=== PATIENT | female | born 1975 | race Caucasian/White ===

== ENCOUNTER 2017-03-29 08:21 | Emergency (ER) | payer SELFPAY ==
[~2017-03-29] VITALS: Ht 158.8 cm; Wt 81.6 kg
[2017-03-29 08:33] VITALS: BP 112/69
[2017-03-29 09:21] LABS: BASO # 0.1 x10^3/uL (0.0-0.2); BASO % 1 % (0-3); EOS % 2 % (0-3); HEMATOCRIT 48.9 % (36.0-47.0); HEMOGLOBIN 16.9 g/dL (12.0-15.5); LYMPH # 2.5 x10^3/uL (1.0-4.8); LYMPH % 24 % (24-48); MEAN CORPUSCULAR HEMOGLOBIN 31 pg (25-35); MEAN CORPUSCULAR HGB CONC 35 g/dL (31-37); MEAN CORPUSCULAR VOLUME 89 fL (79-100); MONO % 8 % (0-9); NEUT % 65 % (31-73); PLATELET COUNT 240 x10^3/uL (140-400); RED BLOOD COUNT 5.51 x10^6/uL (3.50-5.40); RED CELL DISTRIBUTION WIDTH 13.6 % (11.5-14.5); WHITE BLOOD COUNT 10.2 x10^3/uL (4.0-11.0)
[2017-03-29] MEDS ORDERED: IV NORMAL SALINE 1000ML BAG 1,000 ML IV ONE (09:30)
[2017-03-29 09:33] LABS: BILIRUBIN,URINE NEGATIVE (NEG); GLUCOSE,URINE NEGATIVE (NEG); NITRITE,URINE NEGATIVE (NEG); PROTEIN,URINE NEGATIVE (NEG-TRACE); UROBILINOGEN,URINE 0.2 mg/dL (0.2 mg/dL)
[2017-03-29 09:34] LABS: CALCIUM 9.1 mg/dL (8.5-10.1); CREATININE 0.8 mg/dL (0.6-1.0); GFR 79.4; POTASSIUM 4.1 mmol/L (3.5-5.1)
[2017-03-29 09:40] LABS: ALBUMIN 3.6 g/dL (3.4-5.0); ALBUMIN/GLOBULIN RATIO 0.9 (1.0-1.7); TOTAL BILIRUBIN 0.4 mg/dL (0.2-1.0); TOTAL PROTEIN 7.6 g/dL (6.4-8.2)
[2017-03-29 09:47] LABS: BACTERIA,URINE 0 /HPF (0-FEW); RBC,URINE 0 /HPF (0-2); SQUAMOUS EPITHELIAL CELL,UR FEW /LPF; WBC,URINE 0 /HPF (0-4)
[2017-03-29 09:48] LABS: BARBITURATES NEG (NEG); BENZODIAZEPINES NEG (NEG); CANNABINOIDS NEG (NEG); COCAINE NEG (NEG); METHADONE NEG (NEG); OPIATES NEG (NEG); PHENCYCLIDINE NEG (NEG)
--- NOTE | 2017-03-29 10:05 | RAD ---
CT head without contrast History: Slow speech, dizziness. Comparison: None. Procedure: Axial images are obtained of the head from the skull base through the vertex without IV contrast. Findings: The ventricles are minimally prominent. The sulci are normal for the patient's age. No mass-effect, intracranial mass, midline shift, hemorrhage or obvious acute infarction is identified. Basilar cisterns are patent. Bone windows demonstrate no significant calvarial abnormality. The visualized paranasal sinuses appear clear. Impression: 1. Minimal prominence of the lateral and third ventricle. Otherwise unremarkable exam. PQRS Compliance Statement: One or more of the following individualized dose reduction techniques were utilized for this examination: 1. Automated exposure control 2. Adjustment of the mA and/or kV according to patient size 3. Use of iterative reconstruction technique
--- NOTE | 2017-03-29 10:15 | PHYS DOC ---
Past Medical History Past Medical History: No Pertinent History Past Surgical History: Alcohol Use: None Drug Use: None Adult General Chief Complaint Chief Complaint: DIZZY/LIGHT HEADED HPI HPI Patient is a 41 year old female who presents with complaint of "not feeling right." Patient states that starting this morning at approximately 0730, the patient states that she became slightly dizzy and started feeling like things were and "slow motion." Patient also states that she has mild associated headache. Patient states that she has had a similar episode approximately 6-7 months ago which resolved spontaneously. The patient states that currently she feels like she is speaking slower than usual. Patient denies any other symptoms associated. Patient states that she does not have any history of stroke or heart problems. Patient states that she has not experienced any unilateral weakness, difficulty with swallowing, loss of vision, or significant loss of balance with her symptoms. Patient has not taken any medications. Patient states that she did not see a physician or have any medical evaluation with her previous episode. Patient states that she has been under a significant amount of stress. Patient states that she was thinking of her father who is currently on hospice care at time of symptom onset. Patient states that she has been very worried not only for her father but also effects of his potential passing on other family members. She states that she expect her father to pass away within the next week. Review of Systems Review of Systems Constitutional: Denies fever or chills [] Eyes: Denies change in visual acuity, redness, or eye pain [] HENT: Denies nasal congestion or sore throat [] Respiratory: Denies cough or shortness of breath [] Cardiovascular: Denies chest pain or edema [] GI: Denies abdominal pain, nausea, vomiting, bloody stools or diarrhea [] : Denies dysuria or hematuria [] Musculoskeletal: Denies back pain or joint pain [] Integument: Denies rash or skin lesions [] Neurologic: Headache, slowed speech, denies focal weakness or sensory changes [] Current Medications Current Medications Current Medications Medications (Trade) Dose Ordered Sig/Antony Start Time Stop Time Status Last Admin Dose Admin Aspirin (Joi Aspirin) 325 mg 1X ONCE 03/29/17 10:45 03/29/17 10:46 DC 03/29/17 10:58 325 MG Sodium Chloride 1,000 ml @ 1,000 mls/hr 1X ONCE 03/29/17 09:30 5/14/17 10:29 DC 03/29/17 10:03 1,000 MLS/HR Allergies Allergies Allergies Coded Allergies Type Severity Reaction Last Updated Verified No Known Drug Allergies 03/29/17 No Physical Exam Physical Exam Constitutional: Alert, afebrile, tearful during interview. [] HENT: Normocephalic, atraumatic, bilateral external ears normal, oropharynx moist, no oral exudates, nose normal. [] Eyes: PERRLA, EOMI, conjunctiva normal, no discharge. [] Neck: Normal range of motion, no tenderness, supple, no stridor. [] Cardiovascular:Heart rate regular rhythm, no murmur [] Lungs & Thorax: Bilateral breath sounds clear to auscultation [] Abdomen: Bowel sounds normal, soft, no tenderness, no masses, no pulsatile masses. [] Skin: Warm, dry, no erythema, no rash. [] Back: No tenderness, no CVA tenderness. [] Extremities: No tenderness, no cyanosis, no clubbing, ROM intact, no edema. [] Neurologic: Alert and oriented X 3, normal motor function, normal sensory function, no focal deficits noted. [] Current Patient Data Vital Signs Vital Signs Date Time Temp Pulse Resp B/P (MAP) Pulse Ox O2 Delivery O2 Flow Rate FiO2 03/29/17 08:33 97.7 86 18 112/69 (83) 98 Room Air 97.7 Lab Values Laboratory Tests Test 03/29/17 08:55 03/29/17 09:20 White Blood Count 10.2 x10^3/uL (4.0-11.0) Red Blood Count 5.51 x10^6/uL (3.50-5.40) H Hemoglobin 16.9 g/dL (12.0-15.5) H Hematocrit 48.9 % (36.0-47.0) H Mean Corpuscular Volume 89 fL (79-100) Mean Corpuscular Hemoglobin 31 pg (25-35) Mean Corpuscular Hemoglobin Concent 35 g/dL (31-37) Red Cell Distribution Width 13.6 % (11.5-14.5) Platelet Count 240 x10^3/uL (140-400) Neutrophils (%) (Auto) 65 % (31-73) Lymphocytes (%) (Auto) 24 % (24-48) Monocytes (%) (Auto) 8 % (0-9) Eosinophils (%) (Auto) 2 % (0-3) Basophils (%) (Auto) 1 % (0-3) Neutrophils # (Auto) 6.6 x10^3uL (1.8-7.7) Lymphocytes # (Auto) 2.5 x10^3/uL (1.0-4.8) Monocytes # (Auto) 0.8 x10^3/uL (0.0-1.1) Eosinophils # (Auto) 0.2 x10^3/uL (0.0-0.7) Basophils # (Auto) 0.1 x10^3/uL (0.0-0.2) Sodium Level 139 mmol/L (136-145) Potassium Level 4.1 mmol/L (3.5-5.1) Chloride Level 103 mmol/L (98-107) Carbon Dioxide Level 25 mmol/L (21-32) Anion Gap 11 (6-14) Blood Urea Nitrogen 13 mg/dL (7-20) Creatinine 0.8 mg/dL (0.6-1.0) Estimated GFR (Cockcroft-Gault) 79.4 BUN/Creatinine Ratio 16 (6-20) Glucose Level 91 mg/dL (70-99) Calcium Level 9.1 mg/dL (8.5-10.1) Magnesium Level 2.0 mg/dL (1.8-2.4) Total Bilirubin 0.4 mg/dL (0.2-1.0) Aspartate Amino Transferase (AST) 16 U/L (15-37) Alanine Aminotransferase (ALT) 22 U/L (14-59) Alkaline Phosphatase 85 U/L (46-116) Total Protein 7.6 g/dL (6.4-8.2) Albumin 3.6 g/dL (3.4-5.0) Albumin/Globulin Ratio 0.9 (1.0-1.7) L Urine Collection Type Unknown Urine Color Yellow Urine Clarity Clear Urine pH 5.0 Urine Specific [place] 1.010 Urine Protein Negative mg/dL (NEG-TRACE) Urine Glucose (UA) Negative mg/dL (NEG) Urine Ketones (Stick) Negative mg/dL (NEG) Urine Blood Negative (NEG) Urine Nitrite Negative (NEG) Urine Bilirubin Negative (NEG) Urine Urobilinogen Dipstick 0.2 mg/dL (0.2 mg/dL) Urine Leukocyte Esterase Negative (NEG) Urine RBC 0 /HPF (0-2) Urine WBC 0 /HPF (0-4) Urine Squamous Epithelial Cells Few /LPF Urine Bacteria 0 /HPF (0-FEW) Urine Opiates Screen Neg (NEG) Urine Methadone Screen Neg (NEG) Urine Barbiturates Neg (NEG) Urine Phencyclidine Screen Neg (NEG) Urine Amphetamine/Methamphetamine Neg (NEG) Urine Benzodiazepines Screen Neg (NEG) Urine Cocaine Screen Neg (NEG) Urine Cannabinoids Screen Neg (NEG) Urine Ethyl Alcohol Neg (NEG) Laboratory Tests 03/29/17 08:55 Laboratory Tests 03/29/17 08:55 EKG EKG Interpreted by me: Heart rate 69, sinus rhythm, normal intervals, normal axis, no acute ST/T-wave abnormalities present [] Radiology/Procedures Radiology/Procedures [facility] [address] [place] [address] IMAGING REPORT Signed PATIENT: RAUL FERNANDEZ ACCOUNT: [id number] : 1975 LOCATION: ER AGE: 41 SEX: F EXAM STATUS: REG ER ORD. PHYSICIAN: PAULETTE ELISE MD REASON: slow speech, dizziness PROCEDURE: CT HEAD WO CONTRAST CT head without contrast History: Slow speech, dizziness. Comparison: None. Procedure: Axial images are obtained of the head from the skull base through the vertex without IV contrast. Findings: The ventricles are minimally prominent. The sulci are normal for the patient's age. No mass-effect, intracranial mass, midline shift, hemorrhage or obvious acute infarction is identified. Basilar cisterns are patent. Bone windows demonstrate no significant calvarial abnormality. The visualized paranasal sinuses appear clear. Impression: 1. Minimal prominence of the lateral and third ventricle. Otherwise unremarkable exam. PQRS Compliance Statement: One or more of the following individualized dose reduction techniques were utilized for this examination: 1. Automated exposure control 2. Adjustment of the mA and/or kV according to patient size 3. Use of iterative reconstruction technique DICTATED and SIGNED BY: RADHA MCGUIRE MD DATE: 03/29/17 0958 CC: PAULETTE ELISE MD; NO PCP ~ [] Course & Med Decision Making Course & Med Decision Making Pertinent Labs and Imaging studies reviewed. (See chart for details) Patient's lab and imaging do not reveal any evidence of an acute process. I suspect that the patient's symptoms are likely the result of an acute stress reaction with conversive symptoms. The patient was able to tolerated meal tray in the emergency department without difficulty and her symptoms have improved significantly upon arrival. Today lesser extent the patient may display a typical symptoms of possible TIA though this is thought to be much less likely. After speaking with the patient, we will start her on 81 mg aspirin daily and I recommended follow-up with the patient's primary doctor in 3-4 days for reevaluation. Advised return emergency department for any worsening symptoms. Patient voiced understanding and in agreement with treatment plan. Dragon Disclaimer Dragon Disclaimer This electronic medical record was generated, in whole or in part, using a voice recognition dictation system. Departure Departure Impression: Primary Impression: Headache Additional Impressions: Dehydration Acute stress reaction Disposition: 01 HOME, SELF-CARE Condition: IMPROVED Referrals: NO PCP (PCP) MADI MONTOYA MD Patient Instructions: Dehydration, Adult, General Headache Without Cause, Stress Additional Instructions: Follow-up with your primary doctor in 3-4 days. Continue on 81 mg aspirin daily until you have been reevaluated by her primary physician. Return to the emergency department for any worsening symptoms. Scripts Aspirin (ASPIRIN) 81 Mg Tab.chew 1 TAB PO DAILY, #30 TAB 0 Refills Prov: PAULETTE ELISE MD 03/29/17 Problem Qualifiers Primary Impression: Headache Headache type: unspecified Headache chronicity pattern: episodic headache Intractability: not intractable Qualified Codes: R51 - Headache PAULETTE ELISE MD March 29, 2017 10:15
[2017-03-29] MEDS ORDERED: ASPI81TA2 PO (10:43)
[2017-03-29] MEDS ORDERED: ASPIRIN 325 MG TABLET PO ONE (10:45)
--- NOTE | 2017-03-29 12:56 | EKG ---
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
== END 2017-03-29 11:05 | disposition home or self-care (01) ==
LOC: ER 09:45
DX: R51 Headache (principal); E86.0 Dehydration; F43.0 Acute stress reaction; R42 Dizziness and giddiness
CPT/HCPCS: 36415; 70450; 80053; 80305; 80320; 81001; 82947; 83735; 85027; 93005; 96360; 99285; J7030; G0481

== ENCOUNTER 2017-10-14 06:15 | Emergency (ER) | payer SELFPAY ==
[~2017-10-14 06:15] MED LIST: ASPI-630 PO
--- NOTE | 2017-10-14 06:24 | PHYS DOC ---
Past Medical History Past Medical History: No Pertinent History Past Surgical History: Alcohol Use: None Drug Use: None Adult General Chief Complaint Chief Complaint: BACK PAIN OR INJURY HPI HPI Patient is a 42 year old female who presents with with side back pain. Yesterday around 10 AM she slipped at work and caught herself and since then she's been in the back pain on the left CVA area. She denies any dysuria, she states she feels little nauseated but it's likely secondary to her ibuprofen she's been taking. She states she's been taking 4 tablets of Advil every 3-4 hours without any relief. She denies any chest pain, shortness of breath or abdominal pain. She states it hurts the left paraspinal area. Review of Systems Review of Systems Constitutional: Denies fever or chills [] Eyes: Denies change in visual acuity, redness, or eye pain [] HENT: Denies nasal congestion or sore throat [] Respiratory: Denies cough or shortness of breath [] Cardiovascular: No additional information not addressed in HPI [] GI: Denies abdominal pain, nausea, vomiting, bloody stools or diarrhea [] : Denies dysuria or hematuria [] Musculoskeletal: Denies joint pain, positive for left sided paraspinal back pain Integument: Denies rash or skin lesions [] Neurologic: Denies headache, focal weakness or sensory changes [] Endocrine: Denies polyuria or polydipsia [] All other systems were reviewed and found to be within normal limits, except as documented in this note. Allergies Allergies Allergies Coded Allergies Type Severity Reaction Last Updated Verified No Known Drug Allergies 03/29/17 No Physical Exam Physical Exam Constitutional: Well developed, well nourished, no acute distress, non-toxic appearance. [] HENT: Normocephalic, atraumatic, bilateral external ears normal, oropharynx moist, no oral exudates, nose normal. [] Eyes: PERRLA, EOMI, conjunctiva normal, no discharge. [] Neck: Normal range of motion, no tenderness, supple, no stridor. [] Cardiovascular:Heart rate regular rhythm, no murmur [] Lungs & Thorax: Bilateral breath sounds clear to auscultation [] Abdomen: Bowel sounds normal, soft, no tenderness, no masses, no pulsatile masses. [] Skin: Warm, dry, no erythema, no rash. [] Back: No midline tenderness, or palpation over the left CVA area with light palpation, consistent with muscle spasm Extremities: No tenderness, no cyanosis, no clubbing, ROM intact, no edema. [] Neurologic: Alert and oriented X 3, normal motor function, normal sensory function, no focal deficits noted. [] Psychologic: Affect normal, judgement normal, mood normal. [] Current Patient Data Vital Signs Vital Signs Date Time Temp Pulse Resp B/P (MAP) Pulse Ox O2 Delivery O2 Flow Rate FiO2 10/14/17 06:28 97.4 109 26 98 Room Air 97.4 Lab Values Laboratory Tests Test 10/14/17 06:28 10/14/17 06:30 10/14/17 06:48 POC Urine HCG, Qualitative Hcg negative (Negative) Urine Collection Type Unknown Urine Color Calli Urine Clarity Hazy Urine pH 5.5 Urine Specific [place] >=1.030 Urine Protein 30 mg/dL (NEG-TRACE) Urine Glucose (UA) Negative mg/dL (NEG) Urine Ketones (Stick) Trace mg/dL (NEG) Urine Blood Large (NEG) Urine Nitrite Negative (NEG) Urine Bilirubin Small (NEG) Urine Urobilinogen Dipstick 1.0 mg/dL (0.2 mg/dL) Urine Leukocyte Esterase Small (NEG) Urine RBC >40 /HPF (0-2) Urine WBC 5-10 /HPF (0-4) Urine Squamous Epithelial Cells Mod /LPF Urine Bacteria Few /HPF (0-FEW) Urine Mucus Slight /LPF POC Hemoglobin 17.0 g/dL (12-15) H POC Hematocrit 50 % (36-40) H POC Sodium 141 mmol/L (135-145) POC Potassium 4.2 mmol/L (3.5-5.0) POC Chloride 105 mmol/L (98-110) POC Total CO2 28 mmol/L (23-32) Anion Gap 13 mmol/L (6-14) POC Blood Urea Nitrogen 15 mg/dL (8-26) POC Creatinine 0.9 mg/dL (0.5-1.4) Glucose Level 82 mg/dL (70-99) POC Ionized Calcium (Vaishali) 1.14 mmol/L (1.13-1.32) Laboratory Tests 10/14/17 06:48 EKG EKG [] Radiology/Procedures Radiology/Procedures [] Impressions: Back pain Course & Med Decision Making Course & Med Decision Making Pertinent Labs and Imaging studies reviewed. (See chart for details) Patient did not want to stay for further evaluation and left AMA. I did write her prescription for Flexeril however she left prior to obtaining her prescription. Her UA was still pending when I wrote a prescription. Dragon Disclaimer Dragon Disclaimer This electronic medical record was generated, in whole or in part, using a voice recognition dictation system. Departure Departure Impression: Primary Impression: Back pain Disposition: AGAINST MEDICAL ADVICE Condition: STABLE Referrals: NO PCP (PCP) Patient Instructions: Muscle Strain Additional Instructions: You were seen after pulling a muscle in her back. I believe this is likely your pain. You have decided to leave before all your tests have returned. You can try Flexeril which is a muscle relaxant, he careful because it can make you sleepy. At first I would take half a tablet and see how you do. You should not drive or work while taking this medicine as it can impair judgment and make you sleepy. You can also take Advil 600 mg every 8 hours for next 3-5 days. Please drink a few extra glasses extra fluid daily while your taking this high dose of Advil. Return back to ER if you have severe pain, uncontrolled nausea vomiting, high fevers, weakness or numbness in your arms or legs or other concerns. Scripts Cyclobenzaprine Hcl (CYCLOBENZAPRINE HCL) 10 Mg Tablet 1 TAB PO TID Y for MUSCLE SPASMS, #30 TAB Prov: ASHOK JENSEN MD 10/14/17 ASHOK JENSEN MD Oct 14, 2017 06:24
[2017-10-14 06:28] VITALS: BP 166/64
[2017-10-14 06:51] LABS: BILIRUBIN,URINE SMALL (NEG); GLUCOSE,URINE NEGATIVE (NEG); NITRITE,URINE NEGATIVE (NEG); PH,URINE 5.5; PROTEIN,URINE 30 mg/dL (NEG-TRACE)
[2017-10-14 06:53] LABS: POTASSIUM ISTAT 4.2 mmol/L (3.5-5.0)
[2017-10-14 07:12] LABS: SQUAMOUS EPITHELIAL CELL,UR MOD /LPF
[2017-10-14 07:13] LABS: BACTERIA,URINE FEW /HPF (0-FEW); RBC,URINE >40 /HPF (0-2)
[2017-10-14] MEDS ORDERED: CYCL10TA2 PO (07:16)
== END 2017-10-14 07:14 | disposition left against medical advice (07) ==
LOC: ER 06:15
DX: M54.89 Other dorsalgia (principal)
CPT/HCPCS: 36415; 80047; 81001; 81025; 85014; 85018; 87086; 99284

== ENCOUNTER 2021-08-04 10:44 | Emergency (ER) | payer SELFPAY ==
[~2021-08-04] VITALS: Ht 157.5 cm; Wt 89.4 kg
[~2021-08-04 10:44] MED LIST changes: +CYCL10TA2 PO
[2021-08-04 11:17] LABS: BASO # 0.1 x10^3/uL (0.0-0.2); BASO % 1 % (0-3); EOS # 0.1 x10^3/uL (0.0-0.7); EOS % 1 % (0-3); HEMATOCRIT 47.6 % (36.0-47.0); HEMOGLOBIN 16.4 g/dL (12.0-15.5); LYMPH # 1.8 x10^3/uL (1.0-4.8); LYMPH % 17 % (24-48); MEAN CORPUSCULAR HEMOGLOBIN 31 pg (25-35); MEAN CORPUSCULAR HGB CONC 35 g/dL (31-37); MEAN CORPUSCULAR VOLUME 91 fL (79-100); MONO # 0.6 x10^3/uL (0.0-1.1); MONO % 5 % (0-9); NEUT # 8.1 x10^3/uL (1.8-7.7); NEUT % 76 % (31-73); PLATELET COUNT 257 x10^3/uL (140-400); RED BLOOD COUNT 5.26 x10^6/uL (3.50-5.40); RED CELL DISTRIBUTION WIDTH 13.8 % (11.5-14.5); WHITE BLOOD COUNT 10.7 x10^3/uL (4.0-11.0)
--- NOTE | 2021-08-04 11:27 | RAD ---
CT scan of the head without contrast 08/04/2021 Clinical History: Facial tingling. Bilateral arm tingling. History of old CVA. Technique: Unenhanced, contiguous, 5 mm axial sections were obtained through the head. One or more of the following individualized dose reduction techniques were utilized for this study: 1. Automated exposure control. 2. Adjustment of the mA and/or kV according to patient size. 3. Use of iterative reconstruction technique. Findings: The ventricles are within normal limits in size and configuration. A small area of encephal omalacia is seen involving the right temporal/parietal lobe. No acute parenchymal abnormality is seen . No extra-axial fluid collection is noted. No skull fracture is seen. Impression: No acute intracranial abnormality is seen. This result was discussed with Dr. Hollingsworth at 1122 hours. FOR INTERNAL CODING PURPOSES RESULT CODE: (C) Electronically signed by: Ambrocio Mcdaniel MD (08/04/2021 11:24 AM) [id number]
--- NOTE | 2021-08-04 11:27 | EKG ---
[facility] [address] [place] [address] Test Date: 2021-08-04 Test Time: 11:00:59 Pat Name: RAUL FERNANDEZ Department: Room: Gender: F Services Clerk: : 1975 Requested By: SENA DUTTA Order Number: [id number] Reading MD: Measurements Intervals [place] Rate: 86 P: 52 FL: 140 QRS: 47 QRSD: 84 T: 39 QT: 358 QTc: 431 Interpretive Statements SINUS RHYTHM QRS(T) CONTOUR ABNORMALITY CONSIDER INFERIOR MYOCARDIAL DAMAGE POSSIBLY ABNORMAL ECG RI6.01 No previous ECG available for comparison
[2021-08-04 11:28] LABS: CALCIUM 8.8 mg/dL (8.5-10.1); CREATININE 0.9 mg/dL (0.6-1.0); POTASSIUM 4.3 mmol/L (3.5-5.1)
[2021-08-04 11:30] LABS: PROTHROMBIN TIME PATIENT 12.2 SEC (11.7-14.0)
--- NOTE | 2021-08-04 11:43 | RAD ---
CTA HEAD AND NECK W/WO CONTRAST History: Facial and upper extremity paresthesias. Old CVA history. Technique: After bolus of intravenous contrast, volumetric CT data acquisition was acquired of the he ad and neck. Multiplanar reconstruction images to include MIP and 3-D reconstruction images are submi tted. Any determination of stenosis is based on NASCET criteria. Comparison: Noncontrast head CT 08/04/2021. Findings: Angiogram neck: Aortic arch: Normal 3 vessel arch. Common carotid arteries: No stenosis, occlusion or dissection. Internal carotid arteries: No stenosis, occlusion or dissection. External carotid arteries: Patent Vertebral arteries: No stenosis, occlusion or dissection. Angiogram head: ICA: No stenosis, occlusion or aneurysm. MCA: No stenosis, occlusion or aneurysm. HENOK: No stenosis, occlusion or aneurysm. 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 Basilar artery: No stenosis, occlusion or aneurysm. Distal vertebral arteries: No stenosis, occlusion or aneurysm. Other: Imaged lung apices are unremarkable. Soft tissues appear normal. No pathologic osseous lesions. Impression: 1. No arterial stenosis or occlusion within the head or neck. Findings discussed with Dr Sanchez at 08/04/2021 11:39 AM. FOR INTERNAL CODING PURPOSES RESULT CODE: (C) Exposure: One or more of the following individualized dose reduction techniques were utilized for thi s examination: 1. Automated exposure control 2. Adjustment of the mA and/or kV according to patient size 3. Use of iterative reconstruction technique. Electronically signed by: Ben Santana MD (08/04/2021 11:41 AM) [id number]
--- NOTE | 2021-08-04 11:44 | RAD ---
XR CHEST 1V History: Code stroke. Comparison: None. Technique: AP radiograph of the chest. Findings: The lungs are adequately and symmetrically inflated. No airspace consolidation, pleural effusion or p neumothorax. The cardiomediastinal silhouette and pulmonary vasculature are within normal limits. No acute osseous abnormality. Soft tissues are unremarkable. Impression: 1. No acute cardiopulmonary process. Electronically signed by: Ben Santana MD (08/04/2021 11:41 AM) [id number]
[2021-08-04] MEDS ORDERED: ASPIRIN CHEWABLE 81 MG TABLET. PO ONE (11:45)
[2021-08-04] MEDS ORDERED: IOHEXOL 300 MG/ML 100ML VIAL. IV ONE (11:45)
--- NOTE | 2021-08-04 11:53 | PHYS DOC ---
Past Medical History Past Medical History: No Pertinent History Additional Past Medical Histor: L SIDE DEFICITS (SENA DUTTA APRN) Past Surgical History: (SENA DUTTA APRN) Smoking Status: Current Every Day Smoker Additional Information: 0.5 PPD Alcohol Use: Rarely Drug Use: None (SENA DUTTA APRN) General Adult EDM: Chief Complaint: NEURO SYMPTOMS/DEFICITS HPI: HPI: Patient is a 45 year old female presents emergency department chief complaint facial tingling and bilateral upper extremity tingling that started approximately 8 hours prior to arrival. Patient reports a history of CVA for 5 years ago and another one 2 years ago with similar presentation of symptoms. Patient reports having a 3 out of 10 headache on the right side last night at 9 PM that resolved after taking 2 [id number] Naprosyn. Patient denies dizziness, visual disturbances, headaches, nausea, vomiting, diarrhea, chest pain, chest congestion or shortness of breath. Patient denies weakness. Rob zepeda does report left-sided deficits from old CVAs. Patient states she did not follow-up with recommended neurologist 2 years ago when she was diagnosed with a CVA at an urgent care center. Patient refused recommended admission at that time. Patient reports a past medical history of asthma and takes an inhaler otherwise no other medications. States she is currently on her menstrual cycle, only surgical history was a several years ago. Patient reports she can medical care at [facility], denies allergies to medications. States she is an everyday smoker, drinks occasional alcohol, denies illicit drug use. (SENA DUTTA APRN) Review of Systems: Review of Systems: 14 body systems of review of systems have been reviewed. See HPI for pertinent positives and negative responses, otherwise all other systems are negative, nonpertinent or noncontributory. Constitutional: Negative except as outlined in HPI above. Skin: Negative except as outlined in HPI above. Eyes: Negative except as outlined in HPI above. HENT: Negative except as outlined in HPI above. Respiratory: Negative except as outlined in HPI above. Cardiovascular: Negative except as outlined in HPI above. GI: Negative except as outlined in HPI above. : Negative except as outlined in HPI above. Musculoskeletal: Negative except as outlined in HPI above. Integument: Negative except as outlined in HPI above. Neurologic: Negative except as outlined in HPI above. Endocrine: Negative except as outlined in HPI above. Lymphatic: Negative except as outlined in HPI above. Psychiatric: Negative except as outlined in HPI above. (SENA DUTTA APRN) Heart Score: C/O Chest Pain: No Risk Factors: Risk Factors: DM, Current or recent (<one month) smoker, HTN, HLP, family history of CAD, obesity. Risk Scores: Score 0 - 3: 2.5% MACE over next 6 weeks - Discharge Home Score 4 - 6: 20.3% MACE over next 6 weeks - Admit for Clinical Observation Score 7 - 10: 72.7% MACE over next 6 weeks - Early Invasive Strategies (SENA DUTTA APRN) Current Medications: Current Medications Medications (Trade) Dose Ordered Sig/Antony Start Time Stop Time Status Last Admin Dose Admin Iohexol (Omnipaque 300 Mg/ml) 75 ml 1X ONCE 08/04/21 11:45 08/04/21 11:46 UNV (SENA DUTTA APRN) Allergies: Allergies: Allergies Coded Allergies Type Severity Reaction Last Updated Verified No Known Drug Allergies 03/29/17 No (SENA DUTTA APRN) Physical Exam: PE: Constitutional: Well developed, well nourished, no acute distress, non-toxic appearance. 45-year-old female in no apparent distress. HENT: Normocephalic, atraumatic. Eyes: Conjunctiva normal, no discharge. Neck: Normal range of motion, no stridor. Cardiovascular: No cyanosis appreciated, distal cap refill less than 2 seconds. Lungs & Thorax: Patient is in no respiratory distress, no audible adventitious lung sounds appreciated. Abdomen: Nontender, no abnormalities noted. Skin: Warm, dry, no erythema, no rash. Back: No tenderness, no deformities. Extremities: No tenderness, no cyanosis, no clubbing, ROM intact, no edema. Neurologic: Alert and oriented X 3, normal motor function, normal sensory function, no focal deficits noted. See NIHSS stroke scale note, full motor function of face with satisfactory two-point discrimination, full motor function of upper extremities with satisfactory two-point discrimination. Psychologic: Affect normal, judgement normal, mood normal. (SENA DUTTA APRN) Current Patient Data: Labs: Laboratory Tests Test 08/04/21 10:59 9/19/21 11:05 Glucose (Fingerstick) 118 mg/dL (70-99) H White Blood Count 10.7 x10^3/uL (4.0-11.0) Red Blood Count 5.26 x10^6/uL (3.50-5.40) Hemoglobin 16.4 g/dL (12.0-15.5) H Hematocrit 47.6 % (36.0-47.0) H Mean Corpuscular Volume 91 fL (79-100) Mean Corpuscular Hemoglobin 31 pg (25-35) Mean Corpuscular Hemoglobin Concent 35 g/dL (31-37) Red Cell Distribution Width 13.8 % (11.5-14.5) Platelet Count 257 x10^3/uL (140-400) Neutrophils (%) (Auto) 76 % (31-73) H Lymphocytes (%) (Auto) 17 % (24-48) L Monocytes (%) (Auto) 5 % (0-9) Eosinophils (%) (Auto) 1 % (0-3) Basophils (%) (Auto) 1 % (0-3) Neutrophils # (Auto) 8.1 x10^3/uL (1.8-7.7) H Lymphocytes # (Auto) 1.8 x10^3/uL (1.0-4.8) Monocytes # (Auto) 0.6 x10^3/uL (0.0-1.1) Eosinophils # (Auto) 0.1 x10^3/uL (0.0-0.7) Basophils # (Auto) 0.1 x10^3/uL (0.0-0.2) Prothrombin Time 12.2 SEC (11.7-14.0) Prothrombin Time INR 0.9 (0.8-1.1) Activated Partial Thromboplast Time 32 SEC (24-38) Sodium Level 137 mmol/L (136-145) Potassium Level 4.3 mmol/L (3.5-5.1) Chloride Level 104 mmol/L (98-107) Carbon Dioxide Level 26 mmol/L (21-32) Anion Gap 7 (6-14) Blood Urea Nitrogen 12 mg/dL (7-20) Creatinine 0.9 mg/dL (0.6-1.0) Estimated GFR (Cockcroft-Gault) 68.0 Glucose Level 101 mg/dL (70-99) H Calcium Level 8.8 mg/dL (8.5-10.1) Troponin I Quantitative < 0.017 ng/mL (0.000-0.055) Laboratory Tests 08/04/21 11:05 Laboratory Tests 08/04/21 11:05 Vital Signs: Vital Signs Date Time Temp Pulse Resp B/P (MAP) Pulse Ox O2 Delivery O2 Flow Rate FiO2 08/04/21 10:44 98.4 86 19 183/76 (111) 97 Room Air 98.4 (SENA DUTTA APRN) EKG: EKG: EKG performed at 11:00 AM by ED nursing staff shows a normal sinus rhythm without ectopy, heart rate 86 bpm, NM interval 0.140, QTc interval 0.431, no acute STEMI, no ACS, no acute ischemia appreciated, EKG interpreted by ED attending physician Dr. Sanchez. (SENA DUTTA APRN) Radiology/Procedures: Radiology/Procedures: PATIENT: RAUL FERNANDEZ ACCOUNT: [id number] : 1975 LOCATION: ER AGE: 45 SEX: F EXAM STATUS: PRE ER ORD. PHYSICIAN: SENA DUTTA APRN REASON: facial tingly, bilateral arms tingly, Hx old cva [phone] PROCEDURE: CT CODE STROKE HEAD WO CT scan of the head without contrast 08/04/2021 Clinical History: Facial tingling. Bilateral arm tingling. History of old CVA. Technique: Unenhanced, contiguous, 5 mm axial sections were obtained through the head. One or more of the following individualized dose reduction techniques were utilized for this study: 1. Automated exposure control. 2. Adjustment of the mA and/or kV according to patient size. 3. Use of iterative reconstruction technique. Findings: The ventricles are within normal limits in size and configuration. A small area of encephalomalacia is seen involving the right temporal/parietal lobe. No acute parenchymal abnormality is seen. No extra-axial fluid collection is noted. No skull fracture is seen. Impression: No acute intracranial abnormality is seen. This result was discussed with Dr. Hollingsworth at 1122 hours. FOR INTERNAL CODING PURPOSES RESULT CODE: (C) Electronically signed by: Ambrocio Mcdaniel MD (08/04/2021 11:24 AM) [id number] PROCEDURE: CT ANGIOGRAPHY HEAD AND NECK CTA HEAD AND NECK W/WO CONTRAST History: Facial and upper extremity paresthesias. Old CVA history. Technique: After bolus of intravenous contrast, volumetric CT data acquisition was acquired of the head and neck. Multiplanar reconstruction images to include MIP and 3-D reconstruction images are submitted. Any determination of stenosis is based on NASCET criteria. Comparison: Noncontrast head CT 08/04/2021. Findings: Angiogram neck: Aortic arch: Normal 3 vessel arch. Common carotid arteries: No stenosis, occlusion or dissection. Internal carotid arteries: No stenosis, occlusion or dissection. External carotid arteries: Patent Vertebral arteries: No stenosis, occlusion or dissection. Angiogram head: ICA: No stenosis, occlusion or aneurysm. MCA: No stenosis, occlusion or aneurysm. HNEOK: No stenosis, occlusion or aneurysm. TRANSFORMER INSPECTOR: No stenosis, occlusion or aneurysm. Basilar artery: No stenosis, occlusion or aneurysm. Distal vertebral arteries: No stenosis, occlusion or aneurysm. Other: Imaged lung apices are unremarkable. Soft tissues appear normal. No pathologic osseous lesions. Impression: 1. No arterial stenosis or occlusion within the head or neck. Findings discussed with Dr Sanchez at 08/04/2021 11:39 AM. FOR INTERNAL CODING PURPOSES RESULT CODE: (C) (SENA DUTTA APRN) Course & Med Decision Making: Course & Med Decision Making Pertinent Labs and Imaging studies reviewed. (See chart for details) 45-year-old female, vital signs reviewed, presents to the emergency department concerning facial tingliness and upper extremity tingliness. NIHSS scale per formed immediately at bedside equals 1, patient reports history of old CVA x2 5 years ago and 2 years ago respectively, reports left-sided deficits, however reports has not followed up with neurology nor hospitalized for CVA, reports was told by an area urgent care of diagnosis, reports she refused admission at that time. Will initiate code stroke related to symptoms and patient's reported history. After further investigation with patient to detail symptom onset and exact symptoms, CVA unlikely related to bilateral and equal symptoms, will continue neurological work-up. CT head negative for acute stroke, discussed case with ED attending physician Dr. Sanchez who recommends CTA head and neck. CT angio head and neck negative for occlusion or acute stroke. Patient ordered 324 aspirin p.o., paged neurology specialty for consult. Discussed patient case and ED work-up with neurology specialist Dr. Jose who recommends patient be discharged to home with strict follow-up with primary care with the information Dr. Jose was given by me. The patient's urine is not infected, discussed all lab and imaging findings with patient who reports all symptoms have resolved, discussed strict return to emergency department precautions, follow-up with primary care at [facility] tomorrow, patient is amenable to ED discharge planning. Diagnosis facial tingling, upper extremity tingling. (SENA DUTTA APRN) Course & Med Decision Making I personally examined this patient and agree with the plan and disposition of care. I supervised the [employer] in this patient's care. Melba Sanchez DO (MELBA SANCHEZ DO) Angela Disclaimer: Angela Disclaimer: This electronic medical record was generated, in whole or in part, using a voice recognition dictation system. (SENA DUTTA APRN) NIHSS Stroke Scale NIH Stroke Scale: NIH Stroke Scale Response (Comments) Value Level of Consciousness: 0 Alert/Responsive 0 LOC Questions: 0 Answers both correctly 0 Best Gaze: 0 Normal 0 Visual: 0 No visual loss 0 Facial Palsy: 0 Normal, symmetrical 0 Motor - Left Arm 0 No drift 0 Motor - Right Arm 0 No drift 0 Motor - Left Leg 0 No drift 0 Motor: Right Leg 0 No drift 0 Limb Ataxia: 0 Absent 0 Sensory: 1 Mid to moderate loss 1 Best Language: 0 Normal 0 Dysathria: 0 Normal 0 Extinction and Inattention: 0 Normal 0 Total 1 Departure Departure Impression: Primary Impression: Facial tingling Additional Impression: Tingling of both upper extremities Disposition: 01 HOME / SELF CARE / HOMELESS Condition: GOOD Referrals: NO PCP (PCP) Additional Instructions: You were seen today in the emergency department for tingling to your face and upper extremities. An extensive neurological work-up was performed, your physical exam and lab along with the CAT scan of your head and neck did not show any concerning signs that would require admission to the hospital. Your symptoms have resolved while waiting for the results during the ER stay. As we discussed at length, please follow-up with your primary care physician at [facility] for ongoing symptoms. Please return to the emergency department for worsening symptoms or other concerns. Thank you for visiting our Emergency Department. It was a pleasure taking care of you today in the emergency department and we appreciate you trusting us with your care. If any additional problems come up don't hesitate to return to visit us. Please follow up with your primary care provider so they can plan additional care if needed and know about the problem that you had. If symptoms worsen come back to the Emergency Department. Any concerning symptoms that start such as chest pain, shortness of air, weakness or numbness on one side of the body, running high fevers or any other concerning symptoms return to the ER. EMERGENCY DEPARTMENT GENERAL DISCHARGE INSTRUCTIONS Thank you for coming to [facility] Emergency Department (ED) today and trusting us with you care. We trust that you had a positive experience in our Emergency Department. If you wish to speak to the department management, you may call the Director at [phone]. YOUR FOLLOW UP INSTRUCTIONS ARE FOLLOWS: 1. Do you have a private Doctor? If you do not have a private doctor, please ask for a resource list of physicians or clinics that may be able to assist you with follow up care. 2. The Emergency Physicain has interpreted your x-rays. The X-Ray specialist will also review them. If there is a change in the findings, you will be notified in 48 hours when at all possible. 3. A lab test or culture has been done, your results will be reviewed and you will be notified if you need a change in treatment. ADDITIONAL INSTRUCTIONS AND INFORMATION: 1. Your care today has been supervised by a physician who is specially trained in emergency care. Many problems require more than one evaluation for a complete diagnosis and treatment. We recommend that you schedule your follow up appointment as recomme nded to ensure complete treatment of you illness or injury. If you are unable to obtain follow up care and continue to have a problem, or if your condition worsens, we recommend that you return to the ED. 2. We are not able to safely determine your condition over the phone nor are we able to give sound medical advice over the phone. For these safety reasons, if you call for medical advice we will ask you to come to the ED for further evaluation. 3. If you have any questions regarding these discharge instructions please call the ED at [phone]. SAFETY INFORMATION: In the interest of safety, wellness, and injury prevention; we encourage you to wear your sealbelt, if you smoke; quite smoking, and we encourage family to use a protective helmet for bicycling and other sporting events that present an increased risk for head injury. IF YOUR SYMPTOMS WORSEN OR NEW SYMPTOMS DEVELOP, OR YOU HAVE CONCERNS ABOUT YOUR CONDITION; OR IF YOUR CONDITION WORSENS WHILE YOU ARE WAITING FOR YOUR FOLLOW UP APPOINTMENT; EITHER CONTACT YOUR PRIMARY CARE DOCTOR, THE PHYSICIAN WHOSE NAME AND NUMBER YOU WERE GIVEN, OR RETURN TO THE ED IMMEDIATELY. SENA DUTTA APRN Aug 04, 2021 11:53 MELBA SANCHEZ DO Aug 04, 2021 17:21
[2021-08-04 12:24] VITALS: BP 143/79
[2021-08-04 13:50] LABS: BILIRUBIN,URINE NEGATIVE (NEG); CLARITY,URINE CLEAR; COLOR,URINE YELLOW; NITRITE,URINE NEGATIVE (NEG); PH,URINE 5.5 (<5.0-8.0); PROTEIN,URINE NEGATIVE (NEG-TRACE); UROBILINOGEN,URINE 0.2 mg/dL (0.2 mg/dL)
[2021-08-04 13:59] LABS: BACTERIA,URINE 0 /HPF (0-FEW); RBC,URINE OCC /HPF (0-2); WBC,URINE 0 /HPF (0-4)
== END 2021-08-04 13:24 | disposition home or self-care (01) ==
LOC: ER 10:44
DX: R20.2 Paresthesia of skin (principal); R51.9 Headache, unspecified; M54.2 Cervicalgia; F17.200 Nicotine dependence, unspecified, uncomplicated; J45.909 Unspecified asthma, uncomplicated; Z86.73 Personal history of transient ischemic attack (TIA), and cerebral infarction without residual deficits
CPT/HCPCS: 36415; 70450; 70496; 70498; 71045; 80048; 81001; 81025; 82962; 84484; 85025; 85610; 85730; 93005; 99285; Q9967